=== PATIENT | male | born 1990 | race African-American/Black ===

== ENCOUNTER 2022-01-26 15:08 | Emergency (ER) | payer MEDICAID ==
[~2022-01-26] VITALS: Ht 177.8 cm; Wt 95.5 kg
[2022-01-26 17:29] LABS: COVID AG,FIA SOURCE NASAL SWAB
[2022-01-26 18:06] VITALS: BP 122/75
[2022-01-26] MEDS ORDERED: IBUP-2070 PO (18:15)
[2022-01-26] MEDS ORDERED: PENI500T2 PO (18:16)
== END 2022-01-26 18:55 | disposition home or self-care (01) ==
LOC: EMS 15:10
DX: J03.90 Acute tonsillitis, unspecified (principal); Z20.822 Contact with and (suspected) exposure to COVID-19
CPT/HCPCS: 87430; 99283